=== PATIENT | female | born 1940 | race Caucasian/White ===

== ENCOUNTER 2018-12-11 09:18 | Inpatient (IN) | payer MEDICARE ==
[~2018-12-11] VITALS: Ht 165.1 cm; Wt 68.0 kg
[2018-12-13 12:59] VITALS: BP 137/78
== END 2018-12-13 13:50 | disposition home or self-care (01) | DRG 472 ==
LOC: ORIP 10:09 → 4NOR 15:55 → DCLOUNGE 12-13 13:31
PROVIDERS: ADMIT Neurological Surgery; ATTEND Neurological Surgery
PROC: 0RG2071 Fusion of 2 or more Cervical Vertebral Joints with Autologous Tissue Substitute, Posterior Approach, Posterior Column, Open Approach (ICD-10-PCS; principal; 2018-12-11)
PROC: 01N10ZZ Release Cervical Nerve, Open Approach (ICD-10-PCS; 2018-12-11)
PROC: 00NW0ZZ Release Cervical Spinal Cord, Open Approach (ICD-10-PCS; 2018-12-11)
DX: M48.02 Spinal stenosis, cervical region (principal); M47.12 Other spondylosis with myelopathy, cervical region; M50.01 Cervical disc disorder with myelopathy, high cervical region; Z60.2 Problems related to living alone; R32 Unspecified urinary incontinence; M47.22 Other spondylosis with radiculopathy, cervical region; M40.292 Other kyphosis, cervical region; G89.29 Other chronic pain; M20.039 Swan-neck deformity of unspecified finger(s); M19.042 Primary osteoarthritis, left hand; M19.041 Primary osteoarthritis, right hand; M81.0 Age-related osteoporosis without current pathological fracture; I48.91 Unspecified atrial fibrillation; I10 Essential (primary) hypertension; E78.5 Hyperlipidemia, unspecified; Z72.89 Other problems related to lifestyle; Z90.49 Acquired absence of other specified parts of digestive tract; Z90.710 Acquired absence of both cervix and uterus; Z82.61 Family history of arthritis; Z82.49 Family history of ischemic heart disease and other diseases of the circulatory system; Z79.899 Other long term (current) drug therapy; Z83.49 Family history of other endocrine, nutritional and metabolic diseases; M50.10 Cervical disc disorder with radiculopathy, unspecified cervical region
CPT/HCPCS: 36415; 72040; 80048; 82040; 85025; C1713; C1729; G0378; J0690; J1100; J2405; J2704; J2710; J3010; J3370; J0330; J1200; J2800; J3480; J7120